=== PATIENT | male | born 1980 | race Two or more races ===

== ENCOUNTER 2024-05-18 22:29 | Emergency (ER) | payer MEDICAID ==
[~2024-05-18] VITALS: Ht 167.6 cm; Wt 91.9 kg
[2024-05-18 23:13] LABS: Urine Bacteria None Seen /hpf (None Seen)
[2024-05-18 23:25] LABS: Urine Blood 3+ /uL (Negative); Urine Clarity Turbid (Clear); Urine Color Light-Brown (Yellow); Urine Protein, UAD 1+ (Negative); Urine Specific Gravity 1.021 (1.001-1.035); Urine Urobilinogen Normal (Negative); Urine WBC 41 /hpf (0 - 3)
[2024-05-18 23:53] LABS: Basophils # (auto) 0.1 10 ^3/uL (0-0.2); Basophils % (auto) 0.4 % (0.0-2.0); Eosinophils # (auto) 0.2 10 ^3/uL (0-0.8); Eosinophils % (auto) 1.7 % (0.0-7.0); Hematocrit 44.4 % (41.0-53.0); Hemoglobin 15.2 g/dL (13.5-17.5); Lymphocytes # (auto) 2.6 10 ^3/uL (0.4-5.4); Lymphocytes % (auto) 21.8 % (10.0-50.0); Mean Corpuscular Hemoglobin 30.3 pg (28.0-32.0); Mean Corpuscular Hgb Conc. 34.1 g/dL (32.0-36.0); Mean Corpuscular Volume 88.9 fL (80.0-100.0); Monocytes # (auto) 0.8 10 ^3/uL (0-1.3); Monocytes % (auto) 6.6 % (0.0-12.0); Neutrophils # (auto) 8.2 10 ^3/uL (1.6-8.6); Neutrophils % (auto) 69.5 % (37.0-80.0); Red Cell Distribution Width 13.5 % (11.8-14.3); White Blood Cell 11.9 10^3/uL (4.4-10.8)
[2024-05-18] MEDS: KETOROLAC TROMETH 60MG/2ML VIAL IM ONE (23:54)
[2024-05-19 00:15] LABS: Alanine Aminotransferase 31 U/L (7-40); Albumin 4.5 g/dL (3.2-4.8); Alkaline Phosphatase 102 U/L (46-116); Anion Gap 8 (5-15); Aspartate Aminotransferase 16 U/L (13-40); Blood Urea Nitrogen 15 mg/dL (9-23); Calcium 9.9 mg/dL (8.7-10.4); Carbon Dioxide 23 mmol/L (20-30); Chloride 110 mmol/L (98-107); Glucose 132 mg/dL (74-106); Lipase 30 U/L (12-53); Potassium 3.4 mmol/L (3.5-5.1); Sodium 141 mmol/L (136-145)
[2024-05-19 00:16] LABS: Bilirubin, Total 0.3 mg/dL (0.2-1.0); Total Protein 7.4 g/dL (5.7-8.2)
[2024-05-19] MEDS ORDERED: TAMS-35 PO (03:15)
[2024-05-19] MEDS ORDERED: ACET-1304 PO (03:15)
[2024-05-19] MEDS ORDERED: ZOFR4T PO (03:15)
[2024-05-19] MEDS ORDERED: IBUP-1455 PO (03:15)
[2024-05-19 04:00] VITALS: PULSE 65; RESP 14; O2SAT 93
[2024-05-19] MEDS: ONDANSETRON HCL 4 MG/2 ML VIAL IV ONE (04:04)
[2024-05-19] MEDS: MORPHINE SULFATE 4 MG/ML SYR/VIAL IV ONE (04:05)
[2024-05-19] MEDS: MAGNESIUM SULFATE 1GM/100ML 100 ML IV ONE (04:05)
[2024-05-19] MEDS: SODIUM CHLORIDE 0.9% 1,000 ML IV ONE (05:00)
[2024-05-19 06:00] VITALS: BP 134/88; PULSE 68; RESP 15; TEMP 97.9; O2SAT 98
== END 2024-05-19 06:22 | disposition home or self-care (01) ==
LOC: ER 22:29
DX: N20.1 Calculus of ureter (principal); I10 Essential (primary) hypertension
CPT/HCPCS: 36415; 74176; 80053; 81001; 83690; 85025; 96365; 96372; 96375; 99285; J1885; J2270; J2405; J3475; J7030